=== PATIENT | male | born 1940 ===

== ENCOUNTER 2018-07-15 12:20 | Emergency (ER) | payer MEDICARE ==
[2018-07-15 12:24] VITALS: BMI 29.0
[2018-07-15 12:37] VITALS: BP 0/0
[2018-07-15 12:47] VITALS: PULSE 0; TEMP 97.4
[2018-07-15 12:51] LABS: VENOUS BLOOD GAS PO2 35 mm/Hg (30-55); VENOUS BLOOD PH < 6.80 (7.32-7.43)
--- NOTE | 2018-07-15 12:58 | ED PDOC ---
Arrival/HPI - General Chief Complaint: Cardiac Arrest Historian: Family, EMS - History of Present Illness Narrative History of Present Illness (Text): 07/15/18 13:03 A 78 year old male, whose past medical history includes hypertension and asthma, brought in by EMS to the emergency department for cardiac arrest. Patient arrived to the ER at 12:20. Per daughter patient told her he was experiencing shortness of breath for 2 hours prior to EMS arrival. As daughter was calling 911, patient went next door to have his blood pressure check, which was found to be very low. Patient was told to sit down but he would not listen to his family. Later on as they were awaiting for EMS arrival, patient laid down on the floor, as "he could not take the shortness of breath anymore," as per daughter. Per EMS, they arrived to the patient at 11:31. EMS intubated patient and patient coded after which they gave the patient 3 rounds of epi and 0.5 mg Atropine for bradycardia. EMS reports a brief ROSC. Patient arrived to the ED pulseless w/CHAVA in place. PMD: Dr. Deandra Carter Past Medical History - Provider Review Nursing Documentation Reviewed: Yes - Cardiac Hx Cardiac Disorders: Yes Hx Hypertension: Yes - Pulmonary Hx Respiratory Disorders: Yes Hx Asthma: Yes - Endocrine/Metabolic Hx Endocrine Disorders: Yes Hx Diabetes Mellitus Type 2: Yes - Psychiatric Hx Substance Use: No Family/Social History - Physician Review Nursing Documentation Reviewed: Yes Family/Social History: No Known Family HX Smoking Status: Never Smoked Hx Alcohol Use: No Hx Substance Use: No Allergies/Home Meds Allergies/Adverse Reactions: Allergies No Known Allergies Allergy (Verified 07/15/18 12:23) Home Medications: Home Meds Medication Instructions Recorded Confirmed RX: Unobtainable 07/15/18 07/15/18 Review of Systems - Review of Systems Systems not reviewed;Unavailable: Other (cardiac arrest) Respiratory: SOB Physical Exam Vital Signs Temp Pulse BP 07/15/18 12:46 97.4 F L 0 L 07/15/18 12:36 0/0 L - Systems Exam Pupils: Present: Non-Reactive, Pinpoint (6mm bilaterally) Medical Decision Making ED Course and Treatment: 07/15/18 13:25 Impression: 77 year old male for cardiac arrest. Patient was given Epi x 3, shock x 3 for v fib w/no ROSC. Time of was called at 12:41. See code sheet for more info.Time of 12:41 Progress Notes: Patient's daughter states patient had returned from [facility] on June 22, 2018. 07/15/18 13:[address] Deandra Carter, patient's PCP, who requested to speak to patient's daughter. - Lab Interpretations Lab Results: pO2 35 mm/Hg (30-55) 07/15/18 12:30 VBG pH < 6.80 (7.32-7.43) L* 07/15/18 12:30 VBG pCO2 141.0 (40-60) H* 07/15/18 12:30 VBG O2 Sat (Calc) 34.7 % (40-65) L 07/15/18 12:30 VBG Potassium 5.2 mmol/L (3.6-5.2) 07/15/18 12:30 Sodium 147.0 mmol/L (132-148) 07/15/18 12:30 Chloride 99.0 mmol/L (98-107) 07/15/18 12:30 Glucose 174 mg/dl (75-110) H 07/15/18 12:30 Lactate 18.8 mmol/L (0.7-2.1) H* 07/15/18 12:30 FiO2 21.0 % 07/15/18 12:30 Blood Gas Comments No orders 07/15/18 12:30 Crit Value Called To Cassandra uriarte rn ed 07/15/18 12:30 Crit Value Called By Sarthakm 07/15/18 12:30 Blood Gas Notified Time 1244 07/15/18 12:30 - Scribe Statement The provider has reviewed the documentation as recorded by the Nathaniel Laguna Provider Scribe Attestation: All medical record entries made by the Scribe were at my direction and personally dictated by me. I have reviewed the chart and agree that the record accurately reflects my personal performance of the history, physical exam, medical decision making, and the department course for this patient. I have also personally directed, reviewed, and agree with the discharge instructions and disposition. Disposition/Present on Arrival - Present on Arrival Any Indicators Present on Arrival: No History of DVT/PE: No History of Uncontrolled Diabetes: No Urinary Catheter: No History of Decub. Ulcer: No History Surgical Site Infection Following: None - Disposition Have Diagnosis and Disposition been Completed?: Yes Diagnosis: Cardiac arrest Disposition: WITH WITHOUT AUTOPSY Disposition Time: 12:41 Condition:
[2018-07-15 13:30] LABS: BASO # 0.03 K/mm3 (0.0-2.0); BASO % 0.3 % (0.0-3.0); EOS # 0.1 (0.0-0.7); EOS % 0.9 % (1.5-5.0); HEMOGLOBIN 16.1 g/dL (14.0-18.0); LYMPH # 4.9 (1.2-3.4); LYMPH % 43.3 % (22.0-35.0); MEAN CELL VOLUME 95.1 fl (80.0-105.0); MEAN CORPUSCULAR HEMOGLOBIN 29.2 pg (25.0-35.0); MEAN CORPUSCULAR HGB CONC 30.7 g/dl (31.0-37.0); MEAN PLATELET VOLUME 11.1 fl (7.0-11.0); MONO # 0.3 (0.1-0.6); RBC 5.51 10^6/uL (3.5-6.1); RED CELL DISTRIBUTION WIDTH 13.1 % (11.5-14.5); WHITE BLOOD COUNT 11.3 10^3/uL (4.5-11.0)
[2018-07-15 13:32] LABS: ALB/GLOB RATIO 1.1 (1.1-1.8); ALBUMIN 4.2 g/dL (3.0-4.8); TROPONIN I 0.04 ng/mL
[2018-07-15 13:33] LABS: CK-MB 3.6 ng/mL (0.0-3.6)
== END 2018-07-15 15:35 ==
LOC: EDBD 12:20 → ED 12:20
DX: I46.9 Cardiac arrest, cause unspecified (principal); I10 Essential (primary) hypertension; J45.909 Unspecified asthma, uncomplicated; E11.9 Type 2 diabetes mellitus without complications